=== PATIENT | female | born 1970 | race Hispanic/Latino ===

== ENCOUNTER → 2019-11-05 | Outpatient (CLI) | payer BC ==
[~2019-11-05] MED LIST: IOHEXOL-350 50ML VIAL IV ONE
== END | disposition home or self-care (01) ==
LOC: RAH 12:50
PROVIDERS: ATTEND Neurological Surgery
DX: G44.029 Chronic cluster headache, not intractable (principal)
CPT/HCPCS: 70470; Q9967